=== PATIENT | female | born 1980 | race Caucasian/White ===

== ENCOUNTER 2017-10-13 11:26 | Emergency (ER) | payer SELFPAY ==
--- NOTE | 2017-10-13 11:37 | ED.PDOC ---
History of Present Illness - General Chief Complaint: General Stated Complaint: sacral pain Time Seen by Provider: 10/13/17 11:28 Source: patient Exam Limitations: no limitations - History of Present Illness Initial Comments: Joi Calixto 37 y/o female stated that she had burning pain on her buttocks since yesterday,denies history of fall,fever had loose stools today.has history of high blood pressure. Timing/Duration: 24 hours Severity: moderate Improving Factors: nothing Worsening Factors: nothing Associated Symptoms: denies symptoms Allergies/Adverse Reactions: Allergies NO KNOWN ALLERGY Allergy (Verified 06/22/16 21:01) Home Medications: Ambulatory Orders Guaifenesin-Codeine [Cheratussin AC 100-10 mg/5Ml] 10 ml PO Q6HRS PRN #100 ml Ibuprofen 800 mg PO TID PRN #20 tab 01/11/15 Omeprazole [PriLOSEC Cap] 20 mg PO BID #60 cap 04/15/15 Promethazine Tab [Phenergan Tablet] 25 mg PO BID #10 tab 04/15/15 Ondansetron Tab [Zofran Tab] 4 mg PO BID PRN #8 tab 04/02/16 Pantoprazole Tablet [Protonix] 40 mg PO DAILY #14 tab 04/02/16 Acetaminophen W/ Codeine [Tylenol w/Codeine 300-30 mg] 1 tab PO TID PRN #7 tab 10/13/17 Ciprofloxacin [Cipro] 500 mg PO BID 7 Days #14 tablet 10/13/17 Review of Systems - Review of Systems Constitutional: States: no symptoms reported EENTM: States: no symptoms reported Respiratory: States: no symptoms reported Cardiology: States: no symptoms reported Gastrointestinal/Abdominal: States: diarrhea Genitourinary: States: no symptoms reported Musculoskeletal: States: see HPI, back pain Skin: States: no symptoms reported Neurological: States: no symptoms reported All other Systems: Reviewed and Negative, No Change from Baseline Past Medical History (General) - Patient Medical History Hx Seizures: No Hx Stroke: No Hx Dementia: No Hx Asthma: No Hx of COPD: No Hx Cardiac Disorders: No Hx Congestive Heart Failure: No Hx Pacemaker: No Hx Hypertension: Yes - NON COMPLIANT WITH MEDICATION Hx Thyroid Disease: No Hx Diabetes: No Hx Gastroesophageal Reflux: No Hx Renal Disease: No Hx Cancer: No Hx of HIV: No Hx Hepatitis C: No Hx MRSA: No Surgical History: other - btl, - Vaccination History Hx Tetanus, Diphtheria Vaccination: No Hx Influenza Vaccination: No Hx Pneumococcal Vaccination: No - Social History Hx Tobacco Use: Yes Hx Alcohol Use: Yes - ADMITS TO ALCOHOL USE TODAY Hx Substance Use: No Hx Substance Use Treatment: No Hx Depression: No Hx Physical Abuse: No Hx Emotional Abuse: No Hx Suspected Abuse: No - Female History Hx Last Menstrual Period: 09/09/17 Patient : No Family Medical History - Family History Father Family History: Unknown Hx Family Hypertension: Yes - multiple family members Physical Exam - Physical Exam General Appearance: Alert, Comfortable, No apparent distress Eye Exam: bilateral normal Ears, Nose, Throat: hearing grossly normal, normal ENT inspection, normal pharynx Neck: non-tender, full range of motion, supple Respiratory: chest non-tender, lungs clear, normal breath sounds Cardiovascular/Chest: normal peripheral pulses, regular rate, rhythm, no murmur Peripheral Pulses: radial,right: 2+, radial,left: 2+ Gastrointestinal/Abdominal: normal bowel sounds, non tender, soft Back Exam: normal inspection, other - tenderness sacral area Extremity: no pedal edema, no calf tenderness Neurologic: alert, oriented x 3 Skin Exam: normal color, warm/dry Progress - Progress Progress: 10/13/17 12:43 Vital Signs 10/13/17 11:34 Temperature 98.6 F Pulse Rate [ 105 H Left Radial] Respiratory 20 Rate Blood Pressure 158/101 [Left Arm] O2 Sat by Pulse 98 Oximetry - Results/Orders Results/Orders: Laboratory Results - last 24 hr 10/13/17 10/13/17 10/13/17 11:50 11:50 11:50 WBC 15.5 H RBC 4.54 Hgb 13.2 Hct 39.1 MCV 86.1 MCH 29.1 MCHC 33.8 RDW 18.7 H Plt Count 413 H MPV 8.6 Absolute Neuts (auto) 10.20 H Absolute Lymphs (auto) 3.50 H Absolute Monos (auto) 1.30 H Absolute Eos (auto) 0.30 Absolute Basos (auto) 0.20 H Neutrophils % 65.8 Lymphocytes % 22.5 Monocytes % 8.4 Eosinophils % 2.2 Basophils % 1.1 Urine Color Yellow Urine Appearance Clear Urine pH 7.5 Ur Specific [place] 1.020 Urine Protein Negative Urine Glucose (UA) Negative Urine Ketones Trace Urine Blood Negative Urine Nitrite Negative Urine Bilirubin Negative Urine Urobilinogen 1.0 Ur Leukocyte Esterase Negative Urine RBC 0 Urine WBC 0 Ur Epithelial Cells 5-10 Urine Bacteria 0 Urine HCG, Qual Negative - EKG/XRAY/CT Xray Comments: sacrum/coocyx-negative Departure - Departure Clinical Impression: Sacral back pain, Sacroiliitis Time of Disposition: 12:44 Disposition: Discharge to Home or Self Care Condition: Fair Departure Forms: ED Discharge - Pt. Copy, Patient Portal Self Enrollment Referrals: Deb Golden NP [Primary Care Provider] - 1-2 Weeks Prescriptions: Acetaminophen W/ Codeine [Tylenol w/Codeine 300-30 mg] 1 tab PO TID PRN #7 tab PRN Reason: Pain Ciprofloxacin [Cipro] 500 mg PO BID 7 Days #14 tablet Home Medications: Ambulatory Orders Guaifenesin-Codeine [Cheratussin AC 100-10 mg/5Ml] 10 ml PO Q6HRS PRN #100 ml Ibuprofen 800 mg PO TID PRN #20 tab 01/11/15 Omeprazole [PriLOSEC Cap] 20 mg PO BID #60 cap 04/15/15 Promethazine Tab [Phenergan Tablet] 25 mg PO BID #10 tab 04/15/15 Ondansetron Tab [Zofran Tab] 4 mg PO BID PRN #8 tab 04/02/16 Pantoprazole Tablet [Protonix] 40 mg PO DAILY #14 tab 04/02/16 Acetaminophen W/ Codeine [Tylenol w/Codeine 300-30 mg] 1 tab PO TID PRN #7 tab 10/13/17 Ciprofloxacin [Cipro] 500 mg PO BID 7 Days #14 tablet 10/13/17 Additional Instructions: Follow up with primary Md 10.15.2017 call for appointment.January warm moist pack 20 minutes 3 x a day to affected area during waking hours only until better.
[2017-10-13 11:40] VITALS: BP 158/101; TEMP 98.6; O2SAT 98
--- NOTE | 2017-10-13 12:18 | RAD ---
EXAM DESCRIPTION: Sacrum Coccyx CLINICAL HISTORY: pain COMPARISON: None FINDINGS: 3 views were submitted. No fracture or dislocation is identified. Bone marrow attenuation is unremarkable. No radiopaque foreign body is identified. IMPRESSION: No acute fracture or dislocation. Electronically signed by: Dave Beck 10/13/2017 12:17 PM [facility]
== END 2017-10-13 12:58 | disposition home or self-care (01) ==
LOC: ER 11:26
DX: M46.1 Sacroiliitis, not elsewhere classified (principal); I10 Essential (primary) hypertension; Z91.14 Patient's other noncompliance with medication regimen; Z87.891 Personal history of nicotine dependence

== ENCOUNTER 2019-08-26 12:58 | Emergency (ER) | payer SELFPAY ==
[2019-08-26 13:10] VITALS: O2SAT 96
[2019-08-26] MEDS: SODIUM CHLORIDE 0.9% 1000ML 1,000 ML IVS PRN (13:27)
[2019-08-26] MEDS: ONDANSETRON INJ 4 MG/2 ML VIAL IV ONE (13:28)
[2019-08-26] MEDS: diazePAM INJ 10 MG/2 ML SYG IV ONE ×2 (13:30→14:12)
[2019-08-26] MEDS: SODIUM CHLORIDE 0.9% (FLUSH) 10 ML SYG IV PRN (13:34)
--- NOTE | 2019-08-26 13:50 | ED.PDOC ---
History of Present Illness - General Chief Complaint: Drug or Alcohol Abuse Stated Complaint: chest pain,shortness of breath ,difficulty swallow Time Seen by Provider: 08/26/19 13:12 Source: patient, RN notes reviewed, Vital Signs reviewed Exam Limitations: no limitations - History of Present Illness Initial Comments: patient is a 39-year-old white female who presents with complaints of shortness of breath, chest pain, abdominal pain, extremely distraught and depressed and tearful with desire to quit drinking. Patient normally drinks 2 bottles of whiskey a day. Her last drink was at 8 AM this morning.so far today she's only had half a bottle of whiskey. Patient also been vomiting up coffee ground emesis 2 days. It was significantly worse today.patient states the pain is an 8 out of 10 with sharp and stabbing in nature. Nothing seems to make it better. It's worse when she eat or drinks. She has not had pain similar to this in the past.patient also complains of severe depression. Associated Symptoms: chest pain, nausea/vomiting, shortness of breath, weakness Allergies/Adverse Reactions: Allergies NO KNOWN ALLERGY Allergy (Verified 06/22/16 21:01) Home Medications: Ambulatory Orders NK 08/26/19 Review of Systems - Review of Systems Constitutional: States: see HPI, malaise, weakness EENTM: States: no symptoms reported Respiratory: States: see HPI, wheezing Cardiology: States: see HPI, chest pain, palpitations. Denies: syncope Gastrointestinal/Abdominal: States: see HPI, abdominal pain, nausea, vomiting Genitourinary: States: no symptoms reported Musculoskeletal: States: no symptoms reported, see HPI Skin: States: no symptoms reported Neurological: States: see HPI, depressed, weakness. Denies: numbness, paresthesia, tremors Endocrine: States: no symptoms reported Hematologic/Lymphatic: States: no symptoms reported All other Systems: Reviewed and Negative Past Medical History (General) - Patient Medical History Hx Seizures: No Hx Stroke: No Hx Dementia: No Hx Asthma: No Hx of COPD: No Hx Cardiac Disorders: No Hx Congestive Heart Failure: No Hx Pacemaker: No Hx Hypertension: Yes - NON COMPLIANT WITH MEDICATION Hx Thyroid Disease: No Hx Diabetes: No Hx Gastroesophageal Reflux: No Hx Renal Disease: No Hx Cancer: No Hx of HIV: No Hx Hepatitis C: No Hx MRSA: No - Vaccination History Hx Tetanus, Diphtheria Vaccination: No Hx Influenza Vaccination: No Hx Pneumococcal Vaccination: No - Social History Hx Tobacco Use: Yes Hx Alcohol Use: Yes - ADMITS TO ALCOHOL USE TODAY Hx Substance Use: No Hx Substance Use Treatment: No Hx Depression: No Hx Physical Abuse: No Hx Emotional Abuse: No Hx Suspected Abuse: No - Female History Hx Last Menstrual Period: 09/09/17 Patient : No Family Medical History - Family History Father Family History: Unknown Hx Family Hypertension: Yes - multiple family members Physical Exam - Physical Exam General Appearance: Agitated, Alert, Anxious, Well Developed, Well Groomed, Well Nourished Eye Exam: bilateral normal Ears, Nose, Throat: hearing grossly normal, normal pharynx Neck: non-tender, full range of motion, supple, normal inspection Respiratory: chest non-tender, lungs clear, no accessory muscle use, respiratory distress - mild, decreased breath sounds - diffusely throughout, wheezing - inspiratory and expiratory Cardiovascular/Chest: normal peripheral pulses, no edema, no JVD, no murmur, tachycardia Peripheral Pulses: radial,right: 2+, radial,left: 2+ Gastrointestinal/Abdominal: normal bowel sounds, soft, no pulsatile mass, te nderness - diffusely throughout her abdomen no peritoneal signs Back Exam: normal inspection, no CVA tenderness, no vertebral tenderness Extremity: normal range of motion, non-tender, normal inspection, no pedal edema 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 08/26/19 16:21 Patient has had multiple episodes of becoming agitated and leaving the ED and then being convinced to return by family. Due to the fact that she is depressed and wants to go home and finished drinking her bottle of liquor and then shoot herself. We'll rounds of benzodiazepines as well as IV fluids and a banana bag. He shows to calm her down and get her to stay. Patient was going to leave with her 15-year-old daughter in go home. I strongly advised against this. Her old son is in room and is also trying to convince the mother to stay for further treatment. 08/26/19 22:33 this is late documentation. Please were called in an attempt to obtain an OPC or an APOW. Unsuccessful in obtaining these warrants. Patient left AGAINST MEDICAL ADVICE. - Results/Orders Results/Orders: 08/26/19 13:12 Sodium Chloride 0.9% (Flush) [Saline Flush Syringe] 10 ml IV PRN PRN Sodium Chloride 0.9% 1000ML [Ns 1000 ml] 1,000 ml IVS .QD 08/26/19 13:15 EKG STAT Laboratory Results - last 24 hr 08/26/19 08/26/19 08/26/19 13:20 13:20 13:20 WBC 9.7 RBC 4.69 Hgb 14.4 Hct 42.0 MCV 89.5 MCH 30.7 MCHC 34.3 RDW 15.1 H Plt Count 252 MPV 8.6 Absolute Neuts (auto) 5.50 Absolute Lymphs (auto) 3.20 Absolute Monos (auto) 0.70 Absolute Eos (auto) 0.20 Absolute Basos (auto) 0.10 Neutrophils % 56.4 Lymphocytes % 33.4 Monocytes % 7.6 Eosinophils % 1.9 Basophils % 0.7 Sodium 141 Potassium 3.6 Chloride 107 Carbon Dioxide 21 Anion Gap 16.6 BUN 12 Creatinine 0.62 BUN/Creatinine Ratio 19.4 Random Glucose 104 Serum Osmolality 281.3 Calcium 8.8 Total Bilirubin 0.2 Direct Bilirubin < 0.1 Indirect Bilirubin 0.1 L AST 40 ALT 41 Alkaline Phosphatase 87 Serum Total Protein 8.2 Albumin 4.3 Lipase 53 H Serum HCG, Qual Negative Urine Color Urine Appearance Urine pH Ur Specific [place] Urine Protein Urine Glucose (UA) Urine Ketones Urine Blood Urine Nitrite Urine Bilirubin Urine Urobilinogen Ur Leukocyte Esterase Urine RBC Urine WBC Ur Epithelial Cells Amorphous Sediment Urine Bacteria Urine Mucus Ethyl Alcohol Patient ABO/Rh Antibody Screen 08/26/19 08/26/19 08/26/19 13:20 13:30 13:52 WBC RBC Hgb Hct MCV MCH MCHC RDW Plt Count MPV Absolute Neuts (auto) Absolute Lymphs (auto) Absolute Monos (auto) Absolute Eos (auto) Absolute Basos (auto) Neutrophils % Lymphocytes % Monocytes % Eosinophils % Basophils % Sodium Potassium Chloride Carbon Dioxide Anion Gap BUN Creatinine BUN/Creatinine Ratio Random Glucose Serum Osmolality Calcium Total Bilirubin Direct Bilirubin Indirect Bilirubin AST ALT Alkaline Phosphatase Serum Total Protein Albumin Lipase Serum HCG, Qual Urine Color Yellow Urine Appearance Clear Urine pH 5.5 Ur Specific [place] 1.025 Urine Protein 30 Urine Glucose (UA) Negative Urine Ketones Negative Urine Blood Negative Urine Nitrite Negative Urine Bilirubin Negative Urine Urobilinogen 0.2 Ur Leukocyte Esterase Negative Urine RBC 0-1 Urine WBC 3-5 H Ur Epithelial Cells 10-20 Amorphous Sediment 1+ Urine Bacteria 1+ Urine Mucus Small Ethyl Alcohol 324.00 H* Patient ABO/Rh Cancelled Antibody Screen Cancelled EKG performed 26 August 2019 at 1303 hrs.: 133 bpm, anterior septal infarct, age indeterminate, abnormal EKG. No old EKG for comparison Billy Juárez M.D. #[id number] Departure - Departure Clinical Impression: Alcohol abuse, Alcohol intoxication delirium, Suicide ideation Alcohol dependence Qualifiers: Substance use status: with intoxication Complication of substance-induced condition: uncomplicated Qualified Code(s): F10.220 - Alcohol dependence with intoxication, uncomplicated Alcohol withdrawal syndrome Qualifiers: Complication of substance-induced condition: uncomplicated Qualified Code(s): F10.230 - Alcohol dependence with withdrawal, uncomplicated Disposition: Left Against Medical Advice Condition: Fair Departure Forms: ED Discharge - Pt. Copy, Patient Portal Self Enrollment Instructions: DI for Drug Overdose in Adults Referrals: Deb Golden NP [Primary Care Provider] - 1-2 Days Home Medications: Ambulatory Orders NK 08/26/19
[2019-08-26] MEDS: IPRATROPIUM/ALBUTEROL 3 ML VIAL NEB ONE (14:00)
[2019-08-26] MEDS ORDERED: diazePAM INJ 10 MG/2 ML SYG IV ONE (14:13)
[2019-08-26 14:16] VITALS: TEMP 97.7
[2019-08-26] MEDS: ALBUTEROL SULFATE 2.5 MG/3 ML VIAL NEB ONE (15:06)
[2019-08-26] MEDS ORDERED: MULTIPLE VITAMIN 10 ML VIAL ONE (15:27)
[2019-08-26] MEDS ORDERED: FOLIC ACID INJ 5 MG/ML VIAL ONE (15:40)
[2019-08-26] MEDS: MULTIPLE VITAMIN INJ 10 ML, FOLIC ACID INJ 1 MG in SODIUM CHLORIDE 0.9% 1000ML 1,000 ML IV ONE (15:45)
[2019-08-26] MEDS: THIAMINE HCL INJ 100 MG/ML VIAL IV ONE (15:46)
[2019-08-26 16:16] VITALS: BP 126/93
[2019-08-26] MEDS ORDERED: chlordiazePOXIDE HCL 5 MG CAP ONE (16:30)
[2019-08-26] MEDS: chlordiazePOXIDE HCL 25 MG CAP PO ONE (16:36)
== END 2019-08-26 17:22 | disposition left against medical advice (07) ==
LOC: ER 12:58
DX: F10.221 Alcohol dependence with intoxication delirium (principal); F10.230 Alcohol dependence with withdrawal, uncomplicated; R45.851 Suicidal ideations; F32.9 Major depressive disorder, single episode, unspecified; R07.9 Chest pain, unspecified; R06.02 Shortness of breath; R11.2 Nausea with vomiting, unspecified; I10 Essential (primary) hypertension; Z53.29 Procedure and treatment not carried out because of patient's decision for other reasons; Z91.14 Patient's other noncompliance with medication regimen; Z87.891 Personal history of nicotine dependence
CPT/HCPCS: 36415; 80048; 80076; 80320; 81001; 83690; 84484; 84703; 85025; 93005; 94640; J2060; J2405; J3360; J3411; J7030; J7620